=== PATIENT | female | born 1945 | race Caucasian/White ===

== ENCOUNTER 2018-04-01 20:49 | Emergency (ER) | payer MEDICARE, BC ==
[2018-04-01] MEDS ORDERED: Acetaminophen/HYDROcodone 325-5 MG Tab PO ONE (20:50)
--- NOTE | 2018-04-01 21:08 | EDM.PDOC ---
ED HPI GENERAL MEDICAL PROBLEM - General Chief Complaint: General Stated Complaint: rib pain Time Seen by Provider: 04/01/18 21:00 Source of Information: Reports: Patient History Limitations: Reports: No Limitations - History of Present Illness INITIAL COMMENTS - FREE TEXT/NARRATIVE: Park is a pleasant 72 year old female who presents to the ED with c/o right sided rib pain. She reports Monday morning she was working outside when she fell and landed on her right ride on a fourwheeler. She denies any LOC. Denies any other injury other than hitting her right side of her chest. She reports she has a bruise in that area. Reports that yesterday the pain was bearable and she didn't do much other than lay around. She reports today she sat up in the chair more and following this her pain has increased. She rates pain an 8/10. Pain is worse with movement. Has not tried ice/heat. She has been taking [place], which she had left over, for the pain. Denies any shortness of breath, cough, hematuria. No other symptoms. Onset Date: 03/30/18 Duration: Getting Worse Location: Reports: Chest (right rib) Quality: Reports: Ache, Sharp, Stabbing Severity: Severe Improves with: Reports: Medication Worsens with: Reports: Breathing, Movement Context: Reports: Activity Associated Symptoms: Reports: No Other Symptoms Treatments [employer]: Reports: Other Medication(s) ([place]) Right Pain Score (Numeric/FACES): 8 - Related Data Allergies Allergy/AdvReac Type Severity Reaction Status Date / Time No Known Allergies Allergy Verified 04/01/18 20:50 Home Meds: Home Meds Acetaminophen/HYDROcodone [[place] 325-5 MG] 1 - 2 tab PO Q4H #30 tablet 04/01/18 [Rx] Calcium Carbonate [Calcium] 500 mg PO DAILY 04/01/18 [History] Cholecalciferol (Vitamin D3) [Vitamin D3] 2,000 units PO DAILY 04/01/18 [History ] Multivitamin [One-A-Day Essential] 1 tab PO DAILY 04/01/18 [History] Social & Family History - Tobacco Use Smoking Status *Q: Current Some Day Smoker Years of Tobacco use: 1 Packs/Tins Daily: 0 - Recreational Drug Use Recreational Drug Use: No ED ROS GENERAL - Review of Systems Review Of Systems: ROS reveals no pertinent complaints other than HPI. ED EXAM, GENERAL - Physical Exam Exam: See Below Exam Limited By: No Limitations General Appearance: Alert, WD/WN, No Apparent Distress Head: Atraumatic, Normocephalic Neck: Normal Inspection, Supple, Non-Tender, Full Range of Motion Respiratory/Chest: No Respiratory Distress, Lungs Clear, Normal Breath Sounds, No Accessory Muscle Use, Other (tenderness to right lateral mid ribs, ecchymosis noted to right lateral ribs) Cardiovascular: Normal Peripheral Pulses, Regular Rate, Rhythm, No Edema, No Gallop, No JVD, No Murmur, No Rub Back Exam: No: CVA Tenderness (L), CVA Tenderness (R), Decreased Range of Motion , Paraspinal Tenderness Neurological: Alert, Oriented, CN II-XII Intact, Normal Cognition, Normal Gait, Normal Reflexes, No Motor/Sensory Deficits Psychiatric: Normal Affect, Normal Mood Skin Exam: Ecchymosis (right lateral mid chest) Course - Vital Signs Last Recorded V/S: Last Vital Signs Temp 95.6 F 04/01/18 20:52 Pulse 91 04/01/18 20:52 Resp 18 04/01/18 20:52 BP 168/93 H 04/01/18 20:52 Pulse Ox 99 04/01/18 20:52 - Orders/Labs/Meds Orders: Active Orders 24 hr Category Date Time Status Ribs 2V w Chest Rt [CR] Stat Exams 04/01/18 21:03 Taken Meds: Medications Discontinued Medications Generic Name Dose Route Start Last Admin Trade Name Freq PRN Reason Stop Dose Admin Hydrocodone Bitart/Acetaminophen 2 packet 04/01/18 21:33 04/01/18 21:38 Take Home: Acetaminophen/Hydrocod, 2 Tab Pack PO 04/01/18 21:34 2 packet ONETIME ONE Administration - Re-Assessments/Exams Free Text/Narrative Re-Assessment/Exam: 04/01/18 21:08 Xray right ribs with chest does appear to have nondispaced anteriolateral 7th & 8th rib fractures. Discussed with patient. Departure - Departure Time of Disposition: 21:30 Disposition: Home, Self-Care 01 Condition: Fair Clinical Impression: Right rib fracture Qualifiers: Encounter type: initial encounter Rib fracture type: multiple ribs Fracture type: closed Qualified Code(s): S22.41XA - Multiple fractures of ribs, right side, initial encounter for closed fracture - Discharge Information *PRESCRIPTION DRUG MONITORING PROGRAM REVIEWED*: No *COPY OF PRESCRIPTION DRUG MONITORING REPORT IN PATIENT AMI: No Prescriptions: Acetaminophen/HYDROcodone [[place] 325-5 MG] 1 - 2 tab PO Q4H #30 tablet Instructions: Rib Fracture, [id number] Referrals: Chetna Kwan PA-C [Primary Care Provider] - Forms: ED Department Discharge Additional Instructions: May purchase rib belt and use as needed for comfort [place] every 4-6 hours as needed May also use ibuprofen as needed Alternate ice/heat to affected area as needed for comfort Discussed that it can take 4-6 weeks to heal Follow up with PCP if symptoms worsen or do not improve - My Orders Last 24 Hours: My Active Orders 04/01/18 21:03 Ribs 2V w Chest Rt [CR] Stat - Assessment/Plan Last 24 Hours: My Active Orders 04/01/18 21:03 Ribs 2V w Chest Rt [CR] Stat Plan: PLEASE SEE NURSES NOTE FOR PMH, PSH, SH, & FH.
[2018-04-01] MEDS ORDERED: Take Home: Acetaminophen/HYDROcodone 325-5 MG, 2 Tab Pack PO ONE (21:33)
== END 2018-04-01 21:42 | disposition home or self-care (01) ==
LOC: CC.ED 20:49
DX: S22.41XA Multiple fractures of ribs, right side, initial encounter for closed fracture (principal); F17.200 Nicotine dependence, unspecified, uncomplicated; W19.XXXA Unspecified fall, initial encounter
CPT/HCPCS: 71101; 99283; 99284; A9270

== ENCOUNTER 2023-01-22 10:59 | Emergency (ER) | payer MEDICARE, BC ==
[2023-01-22] MEDS ORDERED: predniSONE 20 MG Tab PO STA (11:23)
[2023-01-22] MEDS ORDERED: Take Home: Cephalexin 500 MG Cap, 6 Cap Pack PO ONE (11:25)
== END 2023-01-22 11:48 | disposition home or self-care (01) ==
LOC: CC.ED 10:59
DX: S50.861A Insect bite (nonvenomous) of right forearm, initial encounter (principal); Z79.2 Long term (current) use of antibiotics; W57.XXXA Bitten or stung by nonvenomous insect and other nonvenomous arthropods, initial encounter
CPT/HCPCS: 99282; 99284; A9270-GY; J7512